=== PATIENT | female | born 2005 | race Hispanic/Latino ===

== ENCOUNTER 2025-05-27 03:14 | Inpatient (IN) | payer OTHER ==
[2025-05-27] MEDS ORDERED: hydrALAZINE 20 MG/ML VIAL SLOW IVP PRN (03:51)
[2025-05-27] MEDS ORDERED: Tranexamic Acid 1,000 MG/10 ML VIAL IVP PRN (03:51)
[2025-05-27] MEDS ORDERED: Acetaminophen 500 MG TAB PO PRN (03:51)
[2025-05-27] MEDS ORDERED: Methylergonovine 0.2 MG/ML VIAL IM PRN (03:51)
[2025-05-27] MEDS ORDERED: Carboprost 250 MCG/ML AMP IM PRN (03:51)
[2025-05-27] MEDS ORDERED: Ondansetron PF 4 MG/2 ML Vial IVP PRN ×2 (03:51→19:03)
[2025-05-27] MEDS ORDERED: Diphenoxylate HCl/Atropine Tablet PO PRN ×2 (03:51)
[2025-05-27] MEDS ORDERED: Lidocaine 1% (PF) 30 ML VIAL SC PRN (03:51)
[2025-05-27] MEDS ORDERED: Oxytocin 30 units/NS 500 ML 500 ML IV SCH (04:00)
[2025-05-27 04:18] VITALS: BMI 26.2
[2025-05-27 04:55] LABS: Hematocrit 31.2 % (34.9-44.5); Hemoglobin 10.3 g/dL (12.0-15.5); Mean Corpuscular Hemoglobin 26.4 pg (27.0-33.0); Mean Corpuscular Volume 80.0 fL (81.6-98.3); Platelet Count 311 10x3/uL (150-450); Red Blood Cell (RBC) Count 3.90 10x6/uL (3.90-5.03); White Blood Cell (WBC) Count 12.25 10x3/uL (3.5-10.5)
[2025-05-27 05:32] LABS: HIV (1/2) Antibody/Antigen Non-Reactive (NonReactive); HIV 1/2 INDEX 0.13 S/CO (<1.00); Hep B Surf Ag - L&D Non-Reactive S/CO (NonReactive)
[2025-05-27 05:33] LABS: Syphilis Antibody Index 0.04 S/CO (<1.00 Non-Reactive)
[2025-05-27] MEDS: Oxytocin 30 units/NS 500 ML 500 ML IV SCH (10:25)
[2025-05-27] MEDS: fentaNYL/Ropivacaine Epidural 100 ML ONE (18:37)
[2025-05-27] MEDS ORDERED: diphenhydrAMINE 50 MG/ML VIAL IVP PRN (19:03)
[2025-05-27] MEDS ORDERED: Acetaminophen 325 MG TAB PO PRN (19:03)
[2025-05-27] MEDS ORDERED: Communication Order-Pharmacy FS SCH (19:15)
[2025-05-27] MEDS ORDERED: fentaNYL 2 mcg/Ropivacaine 0.2% Epidural 100 ML CADD EPIDURAL SCH (19:15)
[2025-05-28] MEDS: Acetaminophen 500 MG TAB PO SCH (03:22)
[2025-05-28 04:15] LABS: Analyzer IN Cardio CS NICU; Critical Notified By: CP.PH; RapidComm Collect By CBN; pH (Cord, venous) 7.279 (7.250-7.350)
[2025-05-28 04:18] LABS: Analyzer IN Cardio CS NICU; Critical Notified By: CP.PH; RapidComm Collect By CBN
[2025-05-28] MEDS ORDERED: hydrALAZINE 20 MG/ML VIAL SLOW IVP PRN (04:33)
[2025-05-28] MEDS ORDERED: Benzocaine-Menthol 82.5 ML CAN TOP PRN (04:33)
[2025-05-28] MEDS ORDERED: Methylergonovine 0.2 MG/ML VIAL IM PRN (04:33)
[2025-05-28] MEDS ORDERED: Bisacodyl 10 MG SUPP PR PRN (04:33)
[2025-05-28] MEDS ORDERED: Lanolin Ointment 7 GM TUBE TOP PRN (04:33)
[2025-05-28] MEDS ORDERED: Methylergonovine 0.2 MG TAB PO PRN (04:33)
[2025-05-28] MEDS ORDERED: Preparation H Ointment 28 GM TUBE PR PRN (04:33)
[2025-05-28] MEDS ORDERED: Ondansetron PF 4 MG/2 ML Vial IVP PRN (04:33)
[2025-05-28] MEDS ORDERED: Milk Of Magnesia 30 ML UDCUP PO PRN (04:33)
[2025-05-28] MEDS ORDERED: Oxytocin 30 units/NS 500 ML 500 ML IV SCH (04:45)
[2025-05-28] MEDS: Ibuprofen 800 MG TAB PO PRN (04:52)
[2025-05-28] MEDS: Oxytocin 30 units/NS 500 ML 500 ML IV SCH (04:53)
[2025-05-28] MEDS: Measles/Mumps/Rubella 10 MCG/0.5 ML VIAL SC ONE (08:11)
[2025-05-28] MEDS: Ferrous Sulfate 325 MG TAB PO SCH (08:20)
[2025-05-28] MEDS ORDERED: Bupivacaine HCl 0.5%/Epinephrine 1:200,000/PF 30 ml Vial ONE (10:44)
[2025-05-28 11:04] LABS: Hematocrit 22.6 % (34.9-44.5); Hemoglobin 7.6 g/dL (12.0-15.5); Mean Corpuscular Hemoglobin 27.4 pg (27.0-33.0); Mean Corpuscular Volume 81.6 fL (81.6-98.3); Platelet Count 232 10x3/uL (150-450); Red Blood Cell (RBC) Count 2.77 10x6/uL (3.90-5.03); White Blood Cell (WBC) Count 32.09 10x3/uL (3.5-10.5)
[2025-05-28 11:18] LABS: Platelet Count 232 10x3/uL (130-400)
[2025-05-28 11:21] LABS: D-Dimer Test 4.10 mcg/mL (0.19-0.50); INR-International Normal Ratio 1.0; PTT 28.1 sec (22.0-33.0); Prothrombin Time 10.7 sec (9.5-12.1)
[2025-05-28 11:25] LABS: Fibrinogen 388 mg/dL (220-504)
[2025-05-28] MEDS: Ibuprofen 800 MG TAB PO SCH (14:46)
[2025-05-29 04:29] LABS: #Basophils 0.06 10x3/uL (0.0-0.2); #Eosinophils 0.22 10x3/uL (0.0-0.5); #Monocytes 1.24 10x3/uL (0.0-1.1); #Neutrophils 21.79 10x3/uL (1.5-8.4); %Basophils 0.2 % (0.0-2.0); %Eosinophils 0.8 % (0.0-6.0); %Lymphocytes 13.9 % (18.0-47.0); %Monocytes 4.5 % (0.0-10.0); %Neutrophils 79.8 % (40.0-75.0); Hematocrit 22.7 % (34.9-44.5); Hemoglobin 7.6 g/dL (12.0-15.5); Mean Corpuscular Hemoglobin 26.9 pg (27.0-33.0); Mean Corpuscular Volume 80.2 fL (81.6-98.3); Platelet Count 253 10x3/uL (150-450); Red Blood Cell (RBC) Count 2.83 10x6/uL (3.90-5.03); White Blood Cell (WBC) Count 27.34 10x3/uL (3.5-10.5)
[2025-05-29] MEDS ORDERED: Measles/Mumps/Rubella 10 MCG/0.5 ML VIAL SC ONE (11:25)
[2025-05-30] MEDS: Measles/Mumps/Rubella 10 MCG/0.5 ML VIAL SC ONE (11:34)
[2025-05-30 11:55] VITALS: BP 107/64; TEMP 98.2
== END 2025-05-30 14:20 | disposition home or self-care (01) | DRG 805 ==
LOC: CSHLD/OP 03:14 → CSHLD 04:12 → CSHPP 05-28 06:13
PROVIDERS: ADMIT Family Medicine; ATTEND Family Medicine
PROC: 4A1HXCZ Monitoring of Products of Conception, Cardiac Rate, External Approach (ICD-10-PCS; 2025-05-27)
PROC: 10D07Z6 Extraction of Products of Conception, Vacuum, Via Natural or Artificial Opening (ICD-10-PCS; principal; 2025-05-28)
PROC: 10H07YZ Insertion of Other Device into Products of Conception, Via Natural or Artificial Opening (ICD-10-PCS; 2025-05-28)
PROC: 0UQMXZZ Repair Vulva, External Approach (ICD-10-PCS; 2025-05-28)
PROC: 3E03329 Introduction of Other Anti-infective into Peripheral Vein, Percutaneous Approach (ICD-10-PCS; 2025-05-28)
PROC: 3E0134Z Introduction of Serum, Toxoid and Vaccine into Subcutaneous Tissue, Percutaneous Approach (ICD-10-PCS; 2025-05-30)
DX: O76 Abnormality in fetal heart rate and rhythm complicating labor and delivery (principal); O41.1030 Infection of amniotic sac and membranes, unspecified, third trimester, not applicable or unspecified; Z37.0 Single live birth; Z3A.39 39 weeks gestation of pregnancy; Z98.890 Other specified postprocedural states; Z79.899 Other long term (current) drug therapy; O26.893 Other specified pregnancy related conditions, third trimester; Z67.41 Type O blood, Rh negative; O63.1 Prolonged second stage (of labor); O70.0 First degree perineal laceration during delivery; Z23 Encounter for immunization
CPT/HCPCS: 36415; 51702; 82805; 85025; 85027; 85049; 85300; 85362; 85384; 85610; 85730; 86780; 86850; 86900; 86901; 87340; 87389; 88307; 90707; 99285; J0290; J0595; J1580; J2590; J3010; J7120